=== PATIENT | female | born 1990 | race African-American/Black ===

== ENCOUNTER 2018-05-13 04:31 | Emergency (ER) | payer SELFPAY | END 2018-05-13 05:05 | disposition left against medical advice (07) | LOC: ER 04:31 | DX: R51 Headache (principal); R22.0 Localized swelling, mass and lump, head; Y04.8XXA Assault by other bodily force, initial encounter; Y93.89 Activity, other specified; Y92.89 Other specified places as the place of occurrence of the external cause; Y99.8 Other external cause status ==